=== PATIENT | female | born 1995 ===

== ENCOUNTER → 2022-11-09 | Outpatient (CLI) | payer OTHER ==
[2022-11-10 12:01] LABS: Candida species (DNA Probe) Negative (NEGATIVE); G. vaginalis (DNA Probe) Negative (NEGATIVE); T. vaginalis (DNA Probe) Negative (NEGATIVE)
== END | disposition home or self-care (01) ==
LOC: LAB SHORT 09:30 → LAB 09:30
PROVIDERS: Nurse Practitioner Family
DX: N94.89 Other specified conditions associated with female genital organs and menstrual cycle (principal); L29.3 Anogenital pruritus, unspecified
CPT/HCPCS: 87480; 87510; 87660

== ENCOUNTER → 2022-11-19 | Outpatient (CLI) | payer OTHER | END | disposition home or self-care (01) | LOC: LAB SHORT 16:22 → LAB 16:22 | DX: J03.90 Acute tonsillitis, unspecified (principal) | CPT/HCPCS: 87081 ==

== ENCOUNTER 2023-10-11 20:42 | Emergency (ER) | payer OTHER ==
[~2023-10-11] VITALS: Ht 162.6 cm; Wt 93.0 kg
[2023-10-11 20:48] VITALS: BP 138/97
[2023-10-11] MEDS ORDERED: Ketorolac Tromethamine 10 MG Tab PO ONE (21:35)
== END 2023-10-11 21:53 | disposition home or self-care (01) ==
LOC: ER 20:42
DX: B34.9 Viral infection, unspecified (principal)
CPT/HCPCS: 87081; 87430; 99283; A9270

== ENCOUNTER → 2023-12-29 | Outpatient (CLI) | payer OTHER ==
[2024-01-01 17:05] LABS: C. TRACHOMATIS BY TMA,THINPREP Negative (Negative); N. GONORRHOEAE BY TMA,THINPREP Negative (Negative); SPECIMEN SOURCE Vaginal
== END | disposition home or self-care (01) ==
LOC: LAB 17:56 → LAB SHORT 17:56
PROVIDERS: Obstetrics & Gynecology
DX: Z34.80 Encounter for supervision of other normal pregnancy, unspecified trimester (principal)
CPT/HCPCS: 87491; 87591

== ENCOUNTER → 2024-06-04 | Outpatient (CLI) | payer OTHER | END | disposition home or self-care (01) | LOC: LAB 13:46 → LAB SHORT 13:46 | DX: O09.893 Supervision of other high risk pregnancies, third trimester (principal) | CPT/HCPCS: 87081; 87150 ==

== ENCOUNTER 2024-06-29 10:00 | Inpatient (IN) | payer OTHER ==
[2024-06-29] VITALS (15 sets, daily range): BP systolic 104–124; BP diastolic 55–81
[~2024-06-29] VITALS: Ht 162.6 cm; Wt 99.3 kg
[2024-06-29] MEDS ORDERED: Calcium Carbonate 500 MG Tab Chew PO PRN ×2 (13:20→19:55)
[2024-06-29] MEDS ORDERED: Methylergonovine Maleate 0.2MG / ML 1ML Amp IM PRN ×2 (13:20→20:55)
[2024-06-29] MEDS ORDERED: OXYTOCIN/RINGER'S LACTATE 500 ML IV PRN (13:20)
[2024-06-29] MEDS ORDERED: Tranexamic Acid 100 ML IV SCH (13:20)
[2024-06-29] MEDS ORDERED: Misoprostol 200 MCG Tab PR PRN ×2 (13:20→20:55)
[2024-06-29] MEDS ORDERED: Oxytocin 10 Unit / ML Vial IM PRN (13:20)
[2024-06-29] MEDS ORDERED: Ondansetron HCl 2 MG / ML 2ML Vial IV PRN (13:20)
[2024-06-29] MEDS ORDERED: Misoprostol 200 MCG Tab BC PRN (13:20)
[2024-06-29] MEDS ORDERED: FentaNYL Citrate 50 MCG/ML 2 ML Injection IV PRN (13:20)
[2024-06-29] MEDS ORDERED: Lactated Ringer's 1,000 ML IV PRN (13:20)
[2024-06-29] MEDS ORDERED: Acetaminophen 500 MG Tab PO PRN ×2 (13:20→20:45)
[2024-06-29] MEDS ORDERED: Carboprost Tromethamine 250 MCG/ML 1ML Amp IM PRN ×2 (13:20→20:50)
[2024-06-29] MEDS ORDERED: Lactated Ringer's 1,000 ML IV SCH ×4 (13:25→20:55)
[2024-06-29] MEDS ORDERED: OXYTOCIN/RINGER'S LACTATE 500 ML IV SCH ×2 (13:25→20:55)
[2024-06-29] MEDS ORDERED: ePHEDrine Sulfate 50 MG/ML 1ML Injection XX PRN (13:25)
[2024-06-29] MEDS ORDERED: FentaNYL 2mcg/ml-Bup 0.1% Epd 250 ML EPI PRN (13:25)
[2024-06-29 13:28] LABS: BASOPHILS ABSOLUTE AUTO 0.03 K/mm3 (0.00-0.23); BASOPHILS PERCENT AUTO 0 % (0-2); EOSINOPHILS ABSOLUTE AUTO 0.02 K/mm3 (0.00-0.68); EOSINOPHILS PERCENT AUTO 0 % (0-6); Hemoglobin 13.8 g/dL (11.5-16.0); IMMATURE GRAN ABSOLUTE AUTO 0.09 K/mm3 (0.00-0.10); IMMATURE GRAN PERCENT AUTO 1 % (0-1); LYMPHOCYTES ABSOLUTE AUTO 2.55 K/mm3 (0.84-5.20); LYMPHOCYTES PERCENT AUTO 15 % (21-46); MONOCYTES ABSOLUTE AUTO 0.75 K/mm3 (0.16-1.47); MONOCYTES PERCENT AUTO 4 % (4-13); Mean Corpuscular HGB 30.1 pg (26.0-34.0); Mean Corpuscular HGB Conc 34.5 g/dL (31.5-36.5); Mean Corpuscular Volume 87 fL (80-100); Mean Platelet Volume 11.4 fL (9.1-12.4); NEUTROPHILS ABSOLUTE AUTO 13.61 K/mm3 (1.96-9.15); NEUTROPHILS PERCENT AUTO 80 % (41-73); Platelet Count 236 K/mm3 (150-400); RDW Coefficient Variation 13.1 % (11.7-14.2); RDW Standard Deviation 41.9 fL (35.1-46.3); Red Blood Cell Count 4.59 M/mm3 (3.80-5.20); White Blood Cell Count 17.05 K/mm3 (4.00-11.30)
[2024-06-29] MEDS ORDERED: Lactated Ringer's 1,000 ML IV ONE (20:00)
[2024-06-29] MEDS ORDERED: Ketorolac Tromethamine 30mg Vial IV PRN (20:35)
[2024-06-29] MEDS ORDERED: FLU VACC TS2024-25(6MOS UP)/PF 45 MCG/0.5 ML SYRINGE IM SCH (20:50)
[2024-06-29] MEDS ORDERED: Benzocaine Topical Anesthetic Spray 60GM TOP PRN (20:50)
[2024-06-29] MEDS ORDERED: Ibuprofen 400 MG Tab PO PRN (20:50)
[2024-06-29] MEDS ORDERED: Witch Hazel/Glycerin PADS TOP PRN (20:50)
[2024-06-29] MEDS ORDERED: Docusate Sodium 100 MG Cap PO PRN (20:50)
[2024-06-29] MEDS ORDERED: Lanolin Cream TOP PRN (20:55)
[2024-06-29] MEDS ORDERED: Oxytocin 10 Unit / ML Vial IM ONE (20:55)
--- NOTE | 2024-06-30 03:00 | NUR ---
PT GOT UP TO VOID FOLLOWING A FUNDAL CHECK THAT WAS FIRM AND BELOW THE UMBILICUS AND HAD SOME BLOOD RUN DOWN HER LEG. RECHECKED FUNDUS AFTER VOID AND IT WAS FOUND TO BE AT THE UMBILICUS AND SLIGHTLY TO THE LEFT, FUNDAL MASSAGE RESOLVED.
[2024-06-30 08:23] VITALS: BP 111/61
[2024-06-30] MEDS ORDERED: Prenatal Vit/FE Fumarate/FA 1 Tab PO SCH (09:00)
[2024-06-30 12:24] VITALS: BP 115/59
[2024-06-30] MEDS ORDERED: Lactated Ringer's 1,000 ML IV SCH ×2 (13:20→13:25)
[2024-06-30 16:14] VITALS: BP 113/68
[2024-06-30 19:31] VITALS: BP 108/62
--- NOTE | 2024-06-30 19:40 | NUR ---
ASSUMED CARE OF PATIENT AT 1900. REPORT RECEIVED FROM ANASTASIA RN. DISCHARGE TEACHING WAS COMPLETED BY FRANKI THOMAS AND THEY ARE ANXIOUS TO DC HOME AFTER 24 HOUR TESTING ON BABY.
[2024-06-30 21:02] VITALS: BP 114/73
== END 2024-06-30 21:23 | disposition home or self-care (01) | DRG 807 ==
LOC: OBS 10:00 → BC 10:00 → OBS 12:26 → BC 12:29
PROVIDERS: ADMIT Advanced Practice Midwife
PROC: 10E0XZZ Delivery of Products of Conception, External Approach (ICD-10-PCS; principal; 2024-06-29)
PROC: 0HQ9XZZ Repair Perineum Skin, External Approach (ICD-10-PCS; 2024-06-29)
DX: O99.214 Obesity complicating childbirth (principal); Z37.0 Single live birth; Z3A.39 39 weeks gestation of pregnancy; Z98.890 Other specified postprocedural states; O99.344 Other mental disorders complicating childbirth; F41.9 Anxiety disorder, unspecified; O70.0 First degree perineal laceration during delivery
CPT/HCPCS: 36415; 59025; 81003; 85025; 86850; 86900; 86901; 99214; A9270; J1885; J2590; J3010; J7120